=== PATIENT | female | born 1990 | race Caucasian/White ===

== ENCOUNTER → 2020-12-17 09:44 | Outpatient (CLI) | payer OTHER, SELFPAY ==
--- NOTE | 2020-12-17 | DI.MRI.S_ITS ---
PROCEDURE: MR ANKLE RT WO CON INDICATIONS: Pain in right ankle and joints of right foot TECHNIQUE: Noncontrast sagittal T1 spin echo and T2 fast spin echo with fat saturation, axial proton density fast spin echo and T2 fast spin echo with fat saturation, coronal T1 spin echo and T2 fast spin echo with fat saturation through the ankle/hindfoot. COMPARISON: [facility] Outside Film, MR, MR ANKLE RIGHT WITHOUT CONTRAST, 01/28/2013, 17:13. FINDINGS: Image quality: Excellent. Bones and joints: No bone marrow contusions or fractures. No hindfoot coalitions. No osteochondral injuries of the talar dome. No pathologic joint effusions. Medial structures: The posterior tibialis, flexor digitorum longus, and flexor hallucis longus tendons are intact. The posterior tibial neurovascular bundle appears normal within the tarsal tunnel, without extrinsic mass effect. The deep layer (anterior and posterior tibiotalar ligaments) and superficial layer (tibionavicular, tibiospring, and tibiocalcaneal ligaments) of the deltoid ligament appear normal. The spring ligament components (superomedial calcaneonavicular, medioplantar oblique calcaneonavicular, and inferoplantar longitudinal ligaments) are intact. Lateral structures: The anterior talofibular appears thickened. The calcaneofibular, and posterior talofibular ligaments appear intact. More superiorly, the anterior and posterior tibiofibular ligaments appear intact, as is the intermalleolar ligament. The tibiofibular syndesmosis is normal in width at 2 mm or less. The peroneus longus and brevis tendons demonstrate normal location and morphology. Adjacent bony peroneal tubercle and retrotrochlear prominence are normal in size. The sinus tarsi demonstrates normal fatty signal, without edema, fibrosis, or cyst formation. Visualized sinus tarsi components (cervical ligament, interosseous talocalcaneal ligament, roots of the inferior extensor retinaculum) appear normal. The calcaneonavicular and calcaneocuboid components of the bifurcate ligament appear intact. The dorsal calcaneocuboid ligament appears intact. Anterior structures: The tibialis anterior, extensor hallucis longus, and extensor digitorum longus tendons appear intact. The dorsal talonavicular ligament appears intact. 1.8 x 1.6 x 0.6 cm lobulated cystic structure over dorsal aspect of midfoot over articulation between navicular bone and middle cuneiform and may represent a ganglion cyst. Posterior and plantar structures: Achilles tendon is intact. Medial and lateral bands of the plantar fascia are of normal thickness. No abductor digiti quinti muscle atrophy to suggest Posey neuropathy. IMPRESSION: 1. No marrow edema. No fracture or dislocation. No evidence of osteochondral lesion of talar dome. 2. Lobulated cystic area over dorsal aspect of midfoot at the level of articulation between navicular bone and middle cuneiform which may represent a small ganglion cyst measures 1.8 x 1.6 x 0.6 cm in size. 3. Ankle tendons are intact. 4. Medial ankle ligaments are intact. Thickened anterior talofibular ligament suggestive of ligament sprain. Rest of the lateral ankle ligaments are intact. Dictated by: Jerson Nolasco M.D. on 12/17/2020 at 11:30 Approved by: Jerson Nolasco M.D. on 12/17/2020 at 11:54
== END ==
PROVIDERS: Referring Provider Orthopaedic Surgery Foot and Ankle Surgery; Visit Provider Orthopaedic Surgery Foot and Ankle Surgery
DX: M25.571 Pain in right ankle and joints of right foot (principal)
CPT/HCPCS: 73721

== ENCOUNTER → 2021-07-06 14:15 | Outpatient (CLI) | payer OTHER, SELFPAY ==
--- NOTE | 2021-07-06 | DI.US.S_ITS ---
PROCEDURE: US PELVIC COMPLETE INDICATIONS: PELVIC DISCOMFORT TECHNIQUE: Real-time scanning was performed of the pelvic organs, with image documentation. Additional endovaginal scanning was necessary due to incomplete visualization of the adnexal and endometrial structures by transabdominal scanning. COMPARISON: None. FINDINGS: Uterus: Uterus is normal in size at 8.0 x 3.6 x 5.1 cm. The endometrium measures 8 mm in combined thickness. Normal uterine echotexture. Ovaries: Right ovary measures 3.3 x 2.7 x 3.5 cm. Left ovary measures 3.1 x 2.7 x 3.2 cm. No suspicious ovarian or adnexal mass lesions. Other: No pathologic free abdominal or pelvic fluid. IMPRESSION: Normal sonographic evaluation of the pelvis. Dictated by: Vasiliy Meza M.D. on 07/06/2021 at 16:18 Approved by: Vasiliy Meza M.D. on 07/06/2021 at 16:21
== END ==
PROVIDERS: Referring Provider Obstetrics & Gynecology; Visit Provider Obstetrics & Gynecology
DX: R10.2 Pelvic and perineal pain (principal)
CPT/HCPCS: 76830; 76856

== ENCOUNTER → 2023-10-16 17:12 | Outpatient (CLI) | payer OTHER, SELFPAY ==
--- NOTE | 2023-10-16 | DI.US.S_ITS ---
PROCEDURE: US OB LIMITED INDICATIONS: ECCENTRIC CORD INSERTION - GROWTH OUTSIDE/PRIOR DATING DATA: Last menstrual period (LMP): 02/12/2023. LMP-based estimated date of delivery (ANGELIQUE): 11/19/2022. First dating scan (date and location): 10/31/2022. Estimated date of delivery (ANGELIQUE) from first dating scan: Numeral 11/24/2023. The calculations are made using the ultrasound ANGELIQUE of 11/24/2023. TECHNIQUE: Real-time scanning was performed of the fetus, with image documentation. Endovaginal scanning: Not performed COMPARISON: None. FINDINGS: A single living intrauterine gestation is present. Presentation: Vertex. Placenta: Placental position is posterior, without previa. The ectopic cord insertion site, which was previously noted to be 3.7 cm from the placental edge, is not well visualized today, secondary to posterior location of the placenta with advanced age. Amniotic fluid index: 22.6 cm, normal range is 5-24 cm. Single deepest vertical pocket is 7.0 cm. heart rate: 125 beats per minute. Maternal cervical canal: Not well seen at late stage of BIOMETRIC PARAMETERS: BPD: 9.0 cm, 36 weeks 3 days HC: 32.7 cm, 37 weeks 1 day AC: 30.5 cm, 34 weeks 3 days FL: 6.6 cm, 33 weeks 6 days Clinically estimated gestational age: 34 weeks 3 days Estimated gestational age from initial scan: 35 weeks 3 days Estimated weight: 2511 g, 55th percentile IMPRESSION: 1. Living late 3rd trimester intrauterine with no sonographic evidence of complications. Current ultrasound age is 1 week greater than clinical age based on initial 1st trimester ultrasound. 2. No evidence of placenta previa. The ectopic cord insertion on the placenta is not well visualized secondary to placental location in late stage of . 3. Upper limits of normal GRACE. Dictated by: Abdoul Bo M.D. on 10/17/2023 at 12:37 Approved by: Abdoul Bo M.D. on 10/17/2023 at 12:53
== END ==
PROVIDERS: Referring Provider Obstetrics & Gynecology; Visit Provider Obstetrics & Gynecology
DX: O43.123 Velamentous insertion of umbilical cord, third trimester (principal); Z3A.34 34 weeks gestation of pregnancy
CPT/HCPCS: 76815

== ENCOUNTER → 2024-02-27 13:58 | Outpatient (CLI) | payer OTHER, SELFPAY | PROVIDERS: Visit Provider Obstetrics & Gynecology | DX: N89.8 Other specified noninflammatory disorders of vagina (principal) | CPT/HCPCS: 87480; 87510; 87660 ==